=== PATIENT | male | born 2000 | race Caucasian/White ===

== ENCOUNTER 2020-05-10 07:30 | Emergency (ER) | payer BC, SELFPAY ==
[2020-05-10 07:42] VITALS: BP 159/90; PULSE 78; RESP 16; TEMP 36.5; O2SAT 99
--- NOTE | 2020-05-10 08:01 | ED.EAR ---
HPI - Ear Problem General Chief complaint: Ear Stated complaint: ear ache Source: patient Mode of arrival: ambulatory Limitations: no limitations History of Present Illness HPI Narrative: C/o inability to hear out of left ear since getting mud in it 3 days ago. He rates pain as 5-6/10. He tried home irrigation without results. No external ear tenderness. Complaint: ear discharge Duration: constant Relieving factors: nothing Discharge from ear: Reports no Associated symptoms ear: external ear tenderness Related Data Allergies Allergy/AdvReac Type Severity Reaction Status Date / Time No Known Allergies Allergy Verified 05/10/20 07:48 Review of Systems Constitutional: Constitutional: Denies fever(s) ENT: Denies nasal congestion and Denies sore throat PMFSH Family History Family History (Updated 06/14/16 @ 16:00 by DOCTOR UNKNOWN) Father Diabetes mellitus Family history of sleep apnea Other Asthma Family history of arthritis Social History Social History (Updated 05/10/20 @ 08:09 by Dm Alvarado MD) Smoking status: Current every day smoker Tobacco type: cigarettes Smokeless tobacco user: chewing tobacco Second hand tobacco smoke exposure: No Alcohol intake: never Substance use: current Substance use type: marijuana Gender identity (if verbalized by the patient): Male Exam HENMT: Ears: external ears abnormal (minor discomfort with left tragus movement, no pain with auricle retraction), EAC's normal and Abnormal EAC present (yellow substance fully obstructing canal on left. ) Mouth: Yes moist mucous membranes Other: Right EAC with minimal cerumen, normal TM landmarks. Neck: Neck: no lymphadenopathy Course Vital Signs Vital signs: Vital Signs Temperature 36.5 C 05/10/20 07:42 Pulse Rate 78 05/10/20 07:42 Respiratory Rate 16 05/10/20 07:42 Blood Pressure 159/90 H 05/10/20 07:42 Pulse Oximetry 99 05/10/20 07:42 Temperature 36.5 C 05/10/20 08:05 Pulse Rate 80 05/10/20 08:05 Respiratory Rate 16 05/10/20 08:05 Blood Pressure 145/88 H 05/10/20 08:05 Pulse Oximetry 99 05/10/20 08:05 Procedures Ear Wax Removal Left Ear: Ear Wax Removal Date: 05/10/20 Ear Wax Removal Time: 08:00 Results: Re-examined: cerumen removed completely TM Examination: TM(s) intact, normal appearance Ear Canal Exam: atraumatic Patient Tolerated Procedure: well Complications: no problems Technique: ear canal irrigated Medical Decision Making Vital Signs Vital Signs: Vital Signs Temperature 36.5 C 05/10/20 07:42 Pulse Rate 78 05/10/20 07:42 Respiratory Rate 16 05/10/20 07:42 Blood Pressure 159/90 H 05/10/20 07:42 Pulse Oximetry 99 05/10/20 07:42 Temperature 36.5 C 05/10/20 08:05 Pulse Rate 80 05/10/20 08:05 Respiratory Rate 16 05/10/20 08:05 Blood Pressure 145/88 H 05/10/20 08:05 Pulse Oximetry 99 05/10/20 08:05 Discharge Plan Discharge Clinical Impression: Cerumen impaction Qualifiers: Laterality: left Qualified Code(s): H61.22 - Impacted cerumen, left ear Patient Disposition: Home, Self-Care Condition: Stable Instructions: Ear Foreign Body (ED) Additional Instructions: Wear ear plugs when mudding on 4 [place]. Return or see primary care doctor if ear pain develops. Prescriptions: No Action albuterol sulfate [Ventolin HFA] 90 mcg/actuation HFA aerosol inhaler 1 inhalation INHALATION Q4H PRN (Reason: shortness of breath) Qty: 18 RF: 1 Follow-up/Referrals: Titus Quiroz Jr., MD [Primary Care Provider] - Time of Disposition: 08:04 Discharge Date/Time: 05/10/20 08:07
[2020-05-10 08:05] VITALS: BP 145/88; PULSE 80; RESP 16; TEMP 36.5; O2SAT 99
== END 2020-05-10 08:07 | disposition home or self-care (01) ==
PROVIDERS: Emergency Provider Family Medicine; PCP Internal Medicine
DX: H61.22 Impacted cerumen, left ear (principal)
CPT/HCPCS: 69209; 69210; 99281; 99282

== ENCOUNTER 2020-05-11 08:52 | Emergency (ER) | payer BC, SELFPAY ==
--- NOTE | 2020-05-11 09:02 | ED.EAR ---
HPI - Ear Problem General Chief complaint: Ear Stated complaint: ear ache Time Seen by Provider: 05/11/20 09:02 Source: patient Mode of arrival: ambulatory Limitations: no limitations History of Present Illness HPI Narrative: 19-year-old man comes in today complaining of left ear pain that started this morning. Patient states he was here yesterday and was treated for a cerumen obstruction in the left ear. He states he can hear fine and has had no discharge from his ear. He denies vertigo, nausea, vomiting or ataxia. Prior to cerumen removal yesterday he had used a Q-tip to try to clean out his ears and had pain afterwards. Complaint: ear pain Location: left ear Duration: constant Severity: moderate Relieving factors: nothing Exacerbating factors: palpation Context: Reports trauma Discharge from ear: Reports no Treatment prior to arrival: none Related Data Allergies Allergy/AdvReac Type Severity Reaction Status Date / Time No Known Allergies Allergy Verified 05/10/20 07:48 Review of Systems Constitutional: Constitutional: Denies chills and Denies fever(s) Eyes: Eyes: Denies change in vision and Denies photophobia ENT: Denies dysphagia, Denies nasal congestion and Denies sore throat Cardiovascular: Cardiovascular: Denies chest pain and Denies radiating jaw, neck or arm pain Respiratory: Respiratory: Denies cough and Denies dyspnea Musculoskeletal: Musculoskeletal: Denies arthralgias and Denies joint swelling Integumentary/Breasts: Skin/Breast: Denies pruritus, Denies erythema and Denies rash Neurologic: Denies vertigo, Denies dizziness, Denies syncope, Denies headache(s), Denies focal weakness and Denies numbness Hematologic/Lymphatic: Hematologic/Lymphatic: Denies easy bleeding and Denies easy bruising Allergic/Immunologic: Allergic/Immunologic: Denies lip swelling and Denies wheezing PMFSH Family History Family History (Updated 06/14/16 @ 16:00 by DOCTOR UNKNOWN) Father Diabetes mellitus Family history of sleep apnea Other Asthma Family history of arthritis Social History Social History Smoking status: Current every day smoker Tobacco type: cigarettes Smokeless tobacco user: chewing tobacco Second hand tobacco smoke exposure: No Alcohol intake: never Substance use: current Substance use type: marijuana Gender identity (if verbalized by the patient): Male Exam Const: General: healthy appearing and alert Orientation/consciousness: patient oriented x3 Limitations: no limitations Other: Mild acute distress. HENMT: Ears: external ears normal General nose exam: Normal nares present Mouth: Yes moist mucous membranes Throat: posterior oropharynx normal Other: Right TM and EAC are normal. Left EAC has swelling from the inferior portion which obstructs the most of the tympanic membrane. What little tympanic membrane is visible appears to be intact. No lacerations are noted in the visible portion. There is tragal tenderness without mastoid, pinna or periauricular swelling or erythema. Eyes: Pupils: Equal, round and reactive pupils present Resp: Effort & Inspection: normal respiratory effort and not labored Auscultation: clear to auscultation bilaterally, no rales, no rhonchi and no wheezes Cardio: Rate: regular rate Rhythm: regular rhythm Heart sounds: no murmurs Skin: General skin exam: normal color, no jaundice and no pallor Rashes: no rashes Neuro: General: patient oriented x3, moves all extremities, no focal motor deficits and CN's II-XI intact bilaterally Speech: normal speech Gait exam (Neuro): Normal gait present Extrem: General: normal to inspection and no clubbing, cyanosis or edema Psych: Appearance: grossly normal and well kempt Mental Status: mental status grossly normal Affect: normal affect Attitude: cooperative Thought content: Yes Normal thought content present Discharge Plan Discharge
[2020-05-11 09:04] VITALS: BP 142/83; PULSE 87; RESP 20; TEMP 36.9; O2SAT 98
[2020-05-11 09:21] VITALS: BP 140/80; PULSE 75; RESP 18; TEMP 36.7; O2SAT 98
== END 2020-05-11 09:24 | disposition home or self-care (01) ==
PROVIDERS: Emergency Provider Emergency Medicine; PCP Internal Medicine
DX: H60.392 Other infective otitis externa, left ear (principal)
CPT/HCPCS: 99283

== ENCOUNTER 2020-05-16 10:40 | Emergency (ER) | payer BC, SELFPAY ==
[2020-05-16 11:40] VITALS: BP 152/67; PULSE 84; RESP 20; TEMP 36.8; O2SAT 98
--- NOTE | 2020-05-16 11:54 | ED.EAR ---
HPI - Ear Problem General Chief complaint: Ear Stated complaint: ear infection R ear Source: patient Mode of arrival: ambulatory Limitations: no limitations History of Present Illness HPI Narrative: Patient presents with some right ear pain currently no drainage with some no fever chills no shortness of breath no sinus pressure or congestion had similar problems with his left ear approximately 1 week ago and was treated with antibiotics. Complaint: ear pain Location: right ear Duration: constant Severity: moderate Relieving factors: nothing Exacerbating factors: nothing Discharge from ear: Reports no Related Data Allergies Allergy/AdvReac Type Severity Reaction Status Date / Time No Known Allergies Allergy Verified 05/10/20 07:48 Review of Systems Review of Systems: All systems reviewed & are unremarkable except as noted in HPI and below PMFSH Past Medical History Medical History Mild persistent asthma without complication Family History Family History Father Diabetes mellitus Family history of sleep apnea Other Asthma Family history of arthritis Social History Social History Smoking status: Current every day smoker Tobacco type: cigarettes Smokeless tobacco user: chewing tobacco Second hand tobacco smoke exposure: No Alcohol intake: never Substance use: current Substance use type: marijuana Gender identity (if verbalized by the patient): Male Exam Const: General: no acute distress and alert Orientation/consciousness: patient oriented x3 HENMT: Head: normal to inspection Other: Right ear canal with erythema Eyes: Conjunctivae: conjunctivae normal Pupils: Equal, round and reactive pupils present Resp: Effort & Inspection: normal respiratory effort Auscultation: clear to auscultation bilaterally Cardio: Rate: regular rate Rhythm: regular rhythm GI: Auscultation: normal bowel sounds Back/Spine/Pelvis: Back: no CVA tenderness Skin: General skin exam: normal color Neuro: General: patient oriented x3 Psych: Mental Status: mental status grossly normal Course Course Emergency Course: patient having right ear pain and will prescribe antibiotic ear drops and antibiotics by mouth. Vital Signs Vital signs: Vital Signs Temperature 36.8 C 05/16/20 11:40 Pulse Rate 84 05/16/20 11:40 Respiratory Rate 20 05/16/20 11:40 Blood Pressure 152/67 H 05/16/20 11:40 Pulse Oximetry 98 05/16/20 11:40 Temperature 36.8 C 05/16/20 11:40 Pulse Rate 84 05/16/20 11:40 Respiratory Rate 20 05/16/20 11:40 Blood Pressure 152/67 H 05/16/20 11:40 Pulse Oximetry 98 05/16/20 11:40 Medical Decision Making Vital Signs Vital Signs: Vital Signs Temperature 36.8 C 05/16/20 11:40 Pulse Rate 84 05/16/20 11:40 Respiratory Rate 20 05/16/20 11:40 Blood Pressure 152/67 H 05/16/20 11:40 Pulse Oximetry 98 05/16/20 11:40 Temperature 36.8 C 05/16/20 11:40 Pulse Rate 84 05/16/20 11:40 Respiratory Rate 05/16/20 11:40 Blood Pressure 152/67 H 05/16/20 11:40 Pulse Oximetry 98 05/16/20 11:40 Critical Care Time Critical Care Time Critical Care Time: No Discharge Plan Discharge Clinical Impression: Otitis externa Patient Disposition: Home, Self-Care Condition: Stable Instructions: Antibiotic Form, Otitis Externa (ED) Additional Instructions: follow-up with primary care physician if symptoms persist or worsen. Prescriptions: New Cortisporin-TC 3.3-3-10-0.5 mg/mL drops,suspension 5 drop EACH EAR QID Qty: 10 RF: 0 amoxicillin-pot clavulanate [Augmentin] 875-125 mg tablet 1 tablet PO Q12H Qty: 20 RF: 0 naproxen 500 mg tablet 500 mg PO BID PRN (Reason: pain) Qty: 20 RF: 0 Follow-up/Referrals: Titus Quiroz Jr., MD [Primar
== END 2020-05-16 12:15 | disposition home or self-care (01) ==
PROVIDERS: Emergency Provider Emergency Medicine; PCP Internal Medicine
DX: H60.91 Unspecified otitis externa, right ear (principal)
CPT/HCPCS: 99283

== ENCOUNTER 2022-12-24 22:11 | Emergency (ER) | payer BC, SELFPAY ==
[2022-12-24 22:15] VITALS: BP 130/98; PULSE 87; RESP 20; TEMP 36.6; O2SAT 99
[2022-12-24 23:15] VITALS: BP 133/85; PULSE 88; RESP 20; O2SAT 99
--- NOTE | 2022-12-24 23:19 | ED.EAR ---
HPI - Ear Problem General Chief complaint: Ear Stated complaint: Rt ear wax History of Present Illness HPI Narrative: 22-year-old white male reports he has problems with wax buildup, and was trying to clean out his wax from his right ear, and thinks he made it worse, can not hear very well. Denies pain or bleeding. no other complaints Related Data Allergies Allergy/AdvReac Type Severity Reaction Status Date / Time No Known Allergies Allergy Verified 04/06/22 14:03 Review of Systems Review of Systems: negative review of system except as listed in HPI PMFSH Past Medical History Medical History Mild persistent asthma without complication Family History Family History Father Diabetes mellitus Family history of sleep apnea Other Asthma Family history of arthritis Social History Social History Smoking status: Never smoker Tobacco type: cigarettes Smokeless tobacco user: chewing tobacco Second hand tobacco smoke exposure: No Alcohol intake: never Substance use: current Substance use type: marijuana Gender identity (if verbalized by the patient): Male Exam Narrative: pleasant, well-oriented, no acute distress Const: General: healthy appearing Nutritional Appearance: well nourished Orientation/consciousness: patient oriented x3 HENMT: Ears: external ears normal Other: right tympanic membrane is obscured by cerumen impaction, left unremarkable Eyes: Conjunctivae: conjunctivae normal Pupils: Equal, round and reactive pupils present EOM: EOMs intact bilaterally Neck: Neck: normal visual inspection Resp: Effort & Inspection: normal respiratory effort Skin: General skin exam: normal color Neuro: General: patient oriented x3, moves all extremities, no focal motor deficits and CN's II-XI intact bilaterally Extrem: General: normal to inspection Psych: Mental Status: mental status grossly normal Affect: normal affect Attitude: cooperative Course Course Emergency Course: patient's right ear was irrigated with warm water until large amount of cerumen was removed, there was no evidence of trauma to the tympanic membrane or external canal ear, and he reports that his hearing is back to baseline. Explained to him about Debrox, using it in each ear once a week and doing that ongoing. He will then follow up with his PCP if needed Vital Signs Vital signs: Vital Signs Temperature 36.6 C 12/24/22 22:15 Pulse Rate 87 12/24/22 22:15 Respiratory Rate 20 12/24/22 22:15 Blood Pressure 130/98 H 12/24/22 22:15 Pulse Oximetry 99 12/24/22 22:15 Oxygen Delivery Room Air 12/24/22 22:15 Temperature 36.6 C 12/24/22 22:15 Pulse Rate 88 12/24/22 23:15 Respiratory Rate 20 12/24/22 23:15 Blood Pressure 133/85 12/24/22 23:15 Pulse Oximetry 99 12/24/22 23:15 Oxygen Delivery Room Air 12/24/22 23:15 Medical Decision Making Differential Diagnosis Differential Diagnosis: differential diagnosis includes but is not limited to cerumen impaction, TM perforation, trauma to the external canal Vital Signs Vital Signs: Vital Signs Temperature 36.6 C 12/24/22 22:15 Pulse Rate 87 12/24/22 22:15 Respiratory Rate 20 12/24/22 22:15 Blood Pressure 130/98 H 12/24/22 22:15 Pulse Oximetry 99 12/24/22 22:15 Oxygen Delivery Room Air 12/24/22 22:15 Temperature 36.6 C 12/24/22 22:15 Pulse Rate 88 12/24/22 23:15 Respiratory Rate 20 12/24/22 23:15 Blood Pressure 133/85 12/24/22 23:15 Pulse Oximetry 99 12/24/22 23:15 Oxygen Delivery Room Air 12/24/22 23:15 the elevated diastolic but under dressed Discharge Plan Discharge Clinical Impression: Cerumen impaction Qualifiers: Laterality: right Qualified Code(s): H61.21 - Impacted cerumen, right ear Patient Di
== END 2022-12-24 23:39 | disposition home or self-care (01) ==
PROVIDERS: Emergency Provider Emergency Medicine; PCP Physician Assistant
DX: H61.21 Impacted cerumen, right ear (principal)
CPT/HCPCS: 69209; 99282

== ENCOUNTER 2023-02-09 04:57 | Emergency (ER) | payer BC, SELFPAY ==
[2023-02-09 04:59] VITALS: BP 140/80; PULSE 75; RESP 18; TEMP 36.6; O2SAT 96
--- NOTE | 2023-02-09 05:24 | ED.EAR ---
HPI - Ear Problem General Chief complaint: Ear Stated complaint: Hearing Loss Time Seen by Provider: 02/09/23 05:24 Source: patient and RN notes reviewed Mode of arrival: ambulatory Limitations: no limitations History of Present Illness HPI Narrative: Patient states he had ear wax impacted in the past and this feels same been having gradual increasing hearing loss. Complaint: decreased hearing Location: left ear Duration: constant Severity: moderate Relieving factors: nothing Exacerbating factors: nothing Discharge from ear: Reports no Associated symptoms ear: decreased hearing Treatment prior to arrival: none Related Data Allergies Allergy/AdvReac Type Severity Reaction Status Date / Time No Known Allergies Allergy Verified 02/09/23 05:02 Review of Systems Review of Systems: All systems reviewed & are unremarkable except as noted in HPI and below PMFSH Past Medical History Medical History (Updated 02/09/23 @ 05:29 by Noel Avila MD) Mild persistent asthma without complication Family History Family History Father Diabetes mellitus Family history of sleep apnea Other Asthma Family history of arthritis Social History Social History Smoking status: Never smoker Tobacco type: cigarettes Smokeless tobacco user: chewing tobacco Second hand tobacco smoke exposure: No Alcohol intake: never Substance use: current Substance use type: marijuana Gender identity (if verbalized by the patient): Male Exam Const: General: healthy appearing, no acute distress and alert Nutritional Appearance: well nourished Orientation/consciousness: patient oriented x3 Limitations: no limitations HENMT: Head: normal to inspection Ears: external ears normal, TM's normal bilaterally and Abnormal EAC present cerumen impaction on the left and localized and excessive cerumen Face/Nose/Sinus: Normal external nose present Face and sinus: normal facial exam Mouth: Yes moist mucous membranes Eyes: Conjunctivae: conjunctivae normal Pupils: Equal, round and reactive pupils present EOM: EOMs intact bilaterally Neck: Neck: normal visual inspection Resp: Effort & Inspection: normal respiratory effort Auscultation: clear to auscultation bilaterally Cardio: Rate: regular rate Rhythm: regular rhythm GI: GI Palp: Yes Soft to palpation and No Tenderness to palpation present (GI) Auscultation: normal bowel sounds Back/Spine/Pelvis: Cervical Spine: cervical ROM normal Thoracic/Lumbar Spine: thoraco-lumbar ROM normal Skin: General skin exam: normal color Rashes: no rashes Neuro: General: patient oriented x3, moves all extremities, no focal motor deficits and CN's II-XI intact bilaterally Speech: normal speech Gait exam (Neuro): Normal gait present Extrem: General: normal to inspection and no clubbing, cyanosis or edema Psych: Mental Status: mental status grossly normal Affect: normal affect Attitude: cooperative Course Vital Signs Vital signs: Vital Signs Temperature 36.6 C 02/09/23 04:59 Pulse Rate 75 02/09/23 04:59 Respiratory Rate 18 02/09/23 04:59 Blood Pressure 140/80 02/09/23 04:59 Pulse Oximetry 96 02/09/23 04:59 Oxygen Delivery Room Air 02/09/23 04:59 Temperature 36.6 C 02/09/23 04:59 Pulse Rate 75 02/09/23 04:59 Respiratory Rate 18 02/09/23 04:59 Blood Pressure 140/80 02/09/23 04:59 Pulse Oximetry 96 02/09/23 04:59 Oxygen Delivery Room Air 02/09/23 04:59 Procedures Ear Wax Removal Left Ear: Ear Wax Removal Date: 02/09/23 Results: Re-examined: cerumen removed completely TM Examination: TM(s) intact, normal appearance Ear Canal Exam: atraumatic Patient Tolerated Procedure: well and no complications Complications: no problems Technique: ear canal irrigated Medical Decision Making Dif
== END 2023-02-09 05:36 | disposition home or self-care (01) ==
PROVIDERS: Emergency Provider Emergency Medicine; PCP Physician Assistant
DX: H61.22 Impacted cerumen, left ear (principal)
CPT/HCPCS: 69209; 99282

== ENCOUNTER 2023-06-10 11:02 | Emergency (ER) | payer BC, SELFPAY ==
[2023-06-10 11:02] VITALS: BP 154/87; PULSE 75; RESP 18; TEMP 36.8; O2SAT 98
--- NOTE | 2023-06-10 11:18 | ED.GENADULT ---
HPI - General Adult General Chief complaint: Ear Stated complaint: R ear pain Time Seen by Provider: 06/10/23 11:18 History of Present Illness HPI narrative: [id number] yo man presents with right ear pain for the past 2 days. Recently did an OTC ear wax treatment. Now diminished hearing in right ear and occasional tinnitus. No facial asymmetry or weakness. No tooth or jaw pain. No fevers or chills. Related Data Allergies Allergy/AdvReac Type Severity Reaction Status Date / Time No Known Allergies Allergy Verified 05/16/23 07:31 Review of Systems Review of Systems: All systems reviewed & are unremarkable except as noted in HPI and below Constitutional: Constitutional: Denies chills and Denies fever(s) ENT: Denies dysphagia and Denies sore throat Cardiovascular: Cardiovascular: Denies chest pain PMFSH Past Medical History Medical History (Updated 06/10/23 @ 11:22 by Santiago Chiang MD) Mild persistent asthma without complication Family History Family History Father Diabetes mellitus Family history of sleep apnea Other Asthma Family history of arthritis Social History Social History Smoking status: Never smoker Tobacco type: cigarettes Smokeless tobacco user: chewing tobacco Second hand tobacco smoke exposure: No Alcohol intake: never Substance use: current Substance use type: marijuana Current Housing: Decline to Answer Concerned About Future Housing: Decline to Answer Difficulty Paying Gas/Electric Bills: Decline to Answer Difficulty Paying for Meds: Decline to Answer Currently Unemployed: Decline to Answer Education: Decline to Answer Difficulty w/ Childcare or Family Care: Decline to Answer Gender identity (if verbalized by the patient): Male Exam Const: General: healthy appearing and no acute distress Nutritional Appearance: well nourished HENMT: Ears: external ears normal, TM's normal bilaterally and EAC's normal Eyes: Conjunctivae: conjunctivae normal Neck: Neck: normal visual inspection Other: supple Skin: General skin exam: normal color, no jaundice and no pallor Neuro: Gait exam (Neuro): Normal gait present Other: no facial asymmetry Course Vital Signs Vital signs: Vital Signs Temperature 36.8 C 06/10/23 11:02 Pulse Rate 75 06/10/23 11:02 Respiratory Rate 18 06/10/23 11:02 Blood Pressure 154/87 H 06/10/23 11:02 Pulse Oximetry 98 06/10/23 11:02 Oxygen Delivery Room Air 06/10/23 11:02 Temperature 36.8 C 06/10/23 11:02 Pulse Rate 75 06/10/23 11:02 Respiratory Rate 18 06/10/23 11:02 Blood Pressure 154/87 H 06/10/23 11:02 Pulse Oximetry 98 06/10/23 11:02 Oxygen Delivery Room Air 06/10/23 11:02 Medical Decision Making MDM Narrative Medical decision making narrative: right ear pain DDx otitis externa, otitis media, labyrinthitis, odontalgia. Likely labyrinthitis due to concurrent diminished hearing and tinnitus. Vital Signs Vital Signs: Vital Signs Temperature 36.8 C 06/10/23 11:02 Pulse Rate 75 06/10/23 11:02 Respiratory Rate 18 06/10/23 11:02 Blood Pressure 154/87 H 06/10/23 11:02 Pulse Oximetry 98 06/10/23 11:02 Oxygen Delivery Room Air 06/10/23 11:02 Temperature 36.8 C 06/10/23 11:02 Pulse Rate 75 06/10/23 11:02 Respiratory Rate 18 06/10/23 11:02 Blood Pressure 154/87 H 06/10/23 11:02 Pulse Oximetry 98 06/10/23 11:02 Oxygen Delivery Room Air 06/10/23 11:02 Discharge Plan Discharge Clinical Impression: Acute pain of right ear Acute labyrinthitis Qualifiers: Laterality: right Qualified Code(s): H83.01 - Labyrinthitis, right ear Patient Disposition: Home, Self-Care Condition: Stable Prescriptions: New dexamethasone 4 mg tablet 4 mg PO BID Qty: 10 0RF ofloxacin 0.3 % drops 5 drp R
[2023-06-10] MEDS: KETOROLAC (*BKC) 60 MG/2 ML VIAL IM (11:41)
== END 2023-06-10 12:15 | disposition home or self-care (01) ==
LOC: CHSED 12:00
PROVIDERS: Emergency Provider Emergency Medicine; PCP Physician Assistant
DX: H83.01 Labyrinthitis, right ear (principal); F17.220 Nicotine dependence, chewing tobacco, uncomplicated
CPT/HCPCS: 96372; 99283; J1885

== ENCOUNTER 2023-10-14 10:19 | Outpatient (CLI) | payer BC, SELFPAY ==
[2023-10-14 11:04] LABS: SARS-CoV-2 RNA PCR Negative (Negative)
[2023-10-14 11:07] LABS: Influenza A QL RT-PCR Positive (Negative); Influenza B QL RT-PCR Negative (Negative); RSV RNA, RT-PCR Negative (Negative)
== END 2023-10-14 10:20 | disposition home or self-care (01) ==
LOC: CHSLAB 10:20
PROVIDERS: PCP Physician Assistant; Visit Provider Physician Assistant
DX: J10.1 Influenza due to other identified influenza virus with other respiratory manifestations (principal); R68.89 Other general symptoms and signs
CPT/HCPCS: 87637

== ENCOUNTER 2025-02-15 11:22 | Emergency (ER) | payer BC, SELFPAY ==
[2025-02-15 11:25] VITALS: BP 164/103; PULSE 101; RESP 18; TEMP 36.7; O2SAT 96
--- NOTE | 2025-02-15 11:56 | ED.GENADULT ---
HPI - General Adult General Chief complaint: Eye Problems Stated complaint: something in rt. eye Time Seen by Provider: 02/15/25 11:41 Source: patient Mode of arrival: ambulatory Limitations: no limitations History of Present Illness HPI narrative: 24-year-old male working on his car last night felt some does get in his eye tried to wash it out he said he sees a small speck at the 9 o'clock position over his iris. Denies any problems with his vision. Does not wear glasses. Denies any nausea vomiting or any other complaints. Related Data Allergies Allergy/AdvReac Type Severity Reaction Status Date / Time No Known Allergies Allergy Verified 02/15/25 11:23 Review of Systems Review of Systems: All systems reviewed & are unremarkable except as noted in HPI and below PMFSH Past Medical History Medical History (Updated 02/15/25 @ 12:03 by Osiel Johnston MD) Mild persistent asthma without complication Family History Family History Father Diabetes mellitus Family history of sleep apnea Other Asthma Family history of arthritis Social History Social History Social History: Caffeine-energy drinks Smoking status: Never smoker Alcohol intake: never Substance use: current Substance use type: marijuana Lack of Transportation: No Lack of Food: Never True Current Housing: I Have Housing Concerned About Future Housing: No Difficulty Paying Gas/Electric Bills: No Difficulty Paying for Meds: No Currently Unemployed: No Education: Trade/Vocational Certificate Difficulty w/ Childcare or Family Care: No Gender identity (if verbalized by the patient): Male Exam Narrative: White male patient with no apparent distress. Head normocephalic, atraumatic. Eyes conjunctiva Injected. Extraocular movements are intact. Tetracaine was used and a spec at 9:00 a.m. position over his iris was seen with the fluorescein. There is no other fluorescein uptake Was seen. eye was irrigated clean with Dacriose solution.. His eyelid was everted on the right and no foreign bodies were seen there. Neurological patient is alert and oriented x 4. Motor and sensory grossly intact. Gait is normal. Course Vital Signs Vital signs: Vital Signs Temperature 36.7 C 02/15/25 11:25 Pulse Rate 101 H 02/15/25 11:25 Respiratory Rate 18 02/15/25 11:25 Blood Pressure 164/103 H 02/15/25 11:25 Pulse Oximetry 96 02/15/25 11:25 Oxygen Delivery Room Air 02/15/25 11:25 Temperature 36.7 C 02/15/25 12:09 Pulse Rate 82 02/15/25 12:09 Respiratory Rate 16 02/15/25 12:09 Blood Pressure 142/82 H 02/15/25 12:09 Pulse Oximetry 98 02/15/25 12:09 Oxygen Delivery Room Air 02/15/25 12:09 Medical Decision Making MDM Narrative Medical decision making narrative: Patient was placed in Room # History and physical was performed. Visual acuity was obtained which was 2020 in the left eye and 2020 -1 in the right eye. And with both eyes 2020 -1 Independent Historian: patient External Source Review: Differential Dx includes but not limited to: foreign body corneal abrasion conjunctivitis Medications were Reviewed: Independently Interpreted by me: Meds, treatment, ED course: Social Situation Impacting Patients Care: Shared decision Making: patient to follow-up with eye physician today at 1:[address] YUNG DIAGNOSIS: foreign body right eye DISPOSITION: discharge home CONDITION AT DISCHARGE: stable Vital Signs Vital Signs: Vital Signs Temperature 36.7 C 02/15/25 11:25 Pulse Rate 101 H 02/15/25 11:25 Respiratory Rate 18 02/15/25 11:25 Blood Pressure 164/103 H 02/15/25 11:25 Pulse Oximetry 96 02/15/25 11:25 Oxygen Delivery Room Air 02/15/25 11:25 Temperature 36.7 C 02/15/25 12:09 Pulse Rate 82 02/15/25 12:09 Respiratory Rate 16 02/15/25 12:09 Blood Pressure 142/82 H 02/15/25 12:09 Pulse Oximetry 98 02/15/25 12:09 Oxygen Delivery Room Air 02/15/25 12:09 Discharge Plan Discharge Clinical Impression: Eye foreign body Qualifiers: Encounter type: initial encounter Laterality: right Qualified Code(s): T15.91XA - Foreign body on external eye, part unspecified, right eye, initial encounter Patient Disposition: Home Condition: Stable Instructions: Antibiotic Form Additional Instructions: follow-up with eye doctor today at 1:00 p.m. Patient Language: Mohawk Prescriptions: No Action Ear Wax Removal Drops 6.5 % drops 5 drp EACH EAR .q week 360 Days Qty: 15 12RF ofloxacin 0.3 % drops 5 drp RIGHT EAR BID 7 Days Qty: 5 0RF albuterol sulfate 90 mcg/actuation HFA aerosol inhaler See Rx Instructions .ROUTE .COMPLEX Qty: 8.5 5RF Dose Instruction: INHALE TWO PUFFS BY MOUTH EVERY FOUR TO SIX HOURS NEEDED FOR SHORTNESS OF BREATH OR WHEEZING Rx Instructions: INHALE TWO PUFFS BY MOUTH EVERY FOUR TO SIX HOURS NEEDED FOR SHORTNESS OF BREATH OR WHEEZING Follow-up/Referrals: Camilla Goss OD [Physician] - ([facility] [address] [place], [place] [id number]) UNKNOWN,DOCTOR [Non-Staff] - Time of Disposition: 12:02
--- OUTSIDE RECORDS SUMMARY | 2025-02-15 11:59 | XMS_ITS | Clinical Summary ---
Author Organization [facility] Address [facility] [place] [address] Care Team Providers Care Sales Engineer Name Role Phone Unavailable Primary Care Provider Unavailabl e Social History Tobacco Use Types Packs/Day Years Used Date Smoking Tobacco: Never Assessed Sex and Gender Information Value Date Recorded Sex Assigned at Not on file Legal Sex Male 7:10 PM CDT Gender Identity Not on file Sexual Orientation Not on file Plan of Treatment Health Maintenance Due Date Last Done Comments Annual Physical 2002 HPV Vaccines (1 - Male 3-dos e series) 2014 Hepatitis C 2017 DTaP, Tdap and Td Vaccines ( 1 - Tdap) 2018 Hepatitis B Vaccines (1 of 3 - 19+ 3-dose series) 2018 COVID-19 Vaccine ( - 2023-2 5 season) 2024 Meningococcal B Vaccine Aged Out No l onger eligible based on patient's age to complete this topic Meningococcal Vaccine Aged Out No antoni tresa eligible based on patient's age to complete this topic Pneumococcal Vaccine: Pediat rics (0 to 5 Years) and At-Risk Patients (6 to 49 Years) Aged Out No longer eligible b ased on patient's age to complete this topic RSV Immunizations Under 20 Months Aged Out No longer eligible based on patient's age to complete this topic
--- OUTSIDE RECORDS SUMMARY | 2025-02-15 11:59 | XMS_ITS | Clinical Summary ---
Author Organization [facility] Address [address] [place] [address] Care Team Providers Care Signal Intelligence Analyst Name Role Phone Amanda Hernandez MD Primary Care Provider [phone] Source Comments [facility],non-[facility] Affiliates and Associated Physician Practices is amultiple site organization consisting of ambulatory clinics and hospital sitesin [place], [place] and [place]. This disclosure is being madepursuant to the Care Everywhere program and may not contain all information available regarding this patient. Last updated 18.[facility] Super Allergies No known active allergies Medications * Be aware that medications may not be up to date on this document. Alwaysverify current medications with the patient. methylphenidate CR (CONCERTA) 54 MG tablet Take 54 mg by mouth every morning. Active albuterol (PROVENTIL;BYRON CARMEL) (5 MG/ML) 0.5% nebulizer solution Inhale 2.5 mg by mouth 4 times daily as needed. Active albuterol HFA (PROVENTIL;BYRON CARMEL;PROAIR) 108 (90 BASE) MCG/ACT inhaler Inhale 2 Puffs by mouth every 4 hours as needed. Active hydrocodone-acet aminophen solution (LORTAB) 7.5-500 MG/15ML solution Take 8.5 mL by mouth every 4 hours as needed for Pain. 480 mL 1 09/25/2011 Active Active Problems Problem Noted Date Diagnosed Date Asthma 05/10/2011 ADHD (attention deficit hyperactivity disorder) 05/10/2011 Hypertrophy of tonsils and adenoids 05/10/2011 KAREN (obstructive sleep apnea) 05/10/2011 Otitis externa 05/10/2011 Family History Medical History Relation Name Comments Anesthesia Reaction Mother Bleeding Disorders Neg Hx Childhood Hearing Disorder Neg Hx Relation Name Status Comments Mother Social History Tobacco Use Types Packs/Day Years Used Date Smoking Tobacco: Passive Smo ke Exposure - Never Smoker Sex and Gender Information Value Date Recorded Sex Assigned at Not on file Legal Sex Male 11:58 AM DIRECTOR ZONE Gender Identity Not on file Sexual Orientation Not on file Last Filed Vital Signs Vital Sign Reading Time Taken Comments Blood Pressure 120/60 09/25/2011 2:13 PM DIRECTOR ZONE Pulse 120 09/25/2011 2:45 PM DIRECTOR ZONE Temperature 36.7 C (98 F) 09/25/2011 2:13 PM DIRECTOR ZONE Respiratory Rate 20 09/25/2011 2:45 PM DIRECTOR ZONE Oxygen Saturation 97% 09/25/2011 2:00 PM DIRECTOR ZONE Inhaled Oxygen Concentration - - Weight 42.2 kg (93 lb 1.3 oz) 09/25/2011 10:15 A M DIRECTOR ZONE Height 143.2 cm (4' 8.38 ) 09/25/2011 10:[address] Body Mass Index 20.59 09/25/2011 10:15 AM DIRECTOR ZONE Plan of Treatment Health Maintenance Due Date Last Done Comments HIV SCREENING 2014 HPV VACCINE (1 - Male 3-dose series) 2014 HEPATITIS C SCREENING 11/22/2017 DTAP/TDAP/TD VACCINES (1 - Tdap) 2018 HEPATITIS B VACCINE (1 of 3 - 19+ 3-dose series) 2018 COVID-19 VACCINE (1 - 2023-2 5 season) 2024 DEPRESSION SCREENING 09/30/2024 INFLUENZA VACCINE (Season Ended) 2025 ZOSTER VACCINE (1 of 2) 2049 HIB VACCINE Aged Out No longer eligi ble based on patient's age to complete this topic MENINGOCOCCAL (Group B) VACC INE SHARED DECISION-MAKING Aged Out No longer eligibl e based on patient's age to complete this topic MENINGOCOCCAL GROUPS A/C/Y/W VACCINE Aged Out No longer eligible b ased on patient's age to complete this topic PNEUMOCOCCAL VACCINE Aged Out No long er eligible based on patient's age to complete this topic Care Teams Signal Intelligence Analyst Relationship Specialty Start Date End Date Amanda Hernandez MD [address] [place] [address] PCP - General 04/06/11
[2025-02-15 12:09] VITALS: BP 142/82; PULSE 82; RESP 16; TEMP 36.7; O2SAT 98
== END 2025-02-15 12:09 | disposition home or self-care (01) ==
PROVIDERS: Emergency Provider Emergency Medicine; PCP Internal Medicine
DX: T15.91XA Foreign body on external eye, part unspecified, right eye, initial encounter (principal); W44.9XXA Unspecified foreign body entering into or through a natural orifice, initial encounter
CPT/HCPCS: 99283; A9270

== ENCOUNTER 2025-02-20 20:14 | Emergency (ER) | payer BC, SELFPAY ==
[2025-02-20 20:14] VITALS: BP 161/91; PULSE 103; RESP 18; TEMP 37.7; O2SAT 98
--- OUTSIDE RECORDS SUMMARY | 2025-02-20 20:18 | XMS_ITS | Clinical Summary ---
Author Organization [facility] Address [address] [place] [address] Care Team Providers Care Leadership Program Associate Name Role Phone Amanda Hernandez MD Primary Care Provider [phone] Source Comments [facility],non-[facility] Affiliates and Associated Physician Practices is amultiple site organization consisting of ambulatory clinics and hospital sitesin [place]. This disclosure is being madepursuant to the Care Everywhere program and may not contain all information available regarding this patient. Last updated 18.[facility] Allergies No known active allergies Medications * [...] on file Legal Sex Male 11:58 AM PV DESIGN ENGINEER Gender Identity Not on file Sexual Orientation Not on file Last Filed Vital Signs Vital Sign Reading Time Taken Comments Blood Pressure 120/60 09/25/2011 2:13 PM PV DESIGN ENGINEER Pulse 120 09/25/2011 2:45 PM PV DESIGN ENGINEER Temperature 36.7 C (98 F) 09/25/2011 2:13 PM PV DESIGN ENGINEER Respiratory Rate 20 09/25/2011 2:45 PM PV DESIGN ENGINEER Oxygen Saturation 97% 09/25/2011 2:00 PM PV DESIGN ENGINEER Inhaled Oxygen Concentration - - Weight 42.2 kg (93 lb 1.3 oz) 09/25/2011 10:15 A M PV DESIGN ENGINEER Height 143.2 cm (4' 8.38 ) 09/25/2011 10:[address] Body Mass Index 20.59 09/25/2011 10:15 AM PV DESIGN ENGINEER Plan of Treatment Health Maintenance Due Date [...] age to complete this topic Care Teams Leadership Program Associate Relationship Specialty Start Date End Date Amanda Hernandez MD [address] [place] [address] PCP - General 04/06/11
[2025-02-20 21:21] LABS: Strep Group A RT-PCR NOT DETECTED (Negative)
--- NOTE | 2025-02-20 21:30 | ED_ITS ---
HPI - URI/Sore Throat General Chief Complaint: Upper Respiratory Infection Stated Complaint: sore throat Time Seen by Provider: 02/20/25 20:18 Source: patient Mode of arrival: ambulatory Limitations: no limitations History of Present Illness HPI Narrative: this is a 24-year-old male with some history of asthma presents with sore throat and fever with some no nausea vomiting no audible wheezing or shortness of breath no chest pain does have tender submandibular lymph nodes with some no abdominal pain no chest pain no dysuria or hematuria no flank pain. Is no cough or congestion. MD elicited complaint: fever and sore throat Onset (ago): day(s) Consistency: constant Severity: mild Related Data Allergies Allergy/AdvReac Type Severity Reaction Status Date / Time No Known Allergies Allergy Verified 02/20/25 20:38 Review of Systems Review of Systems: All systems reviewed & are unremarkable except as noted in HPI and below PMFSH Past Medical History Medical History (Updated 02/20/25 @ 21:34 by Iain Jenkins MD) Mild persistent asthma without complication Family History Family History Father Diabetes mellitus Family history of sleep apnea Other Asthma Family history of arthritis Social History Social History Social History: Caffeine-energy drinks Smoking status: Never smoker Alcohol intake: never Substance use: current Substance use type: marijuana Lack of Transportation: No Lack of Food: Never True Current Housing: I Have Housing Concerned About Future Housing: No Difficulty Paying Gas/Electric Bills: No Difficulty Paying for Meds: No Currently Unemployed: No Education: Trade/Vocational Certificate Difficulty w/ Childcare or Family Care: No Gender identity (if verbalized by the patient): Male Exam Const: General: healthy appearing and no acute distress Nutritional Appearance: well nourished and obese Orientation/consciousness: patient oriented x3 Limitations: no limitations HENMT: Head: normal to inspection Other: Bilateral tonsillar enlargement and erythema Eyes: Conjunctivae: conjunctivae normal Neck: Neck: normal visual inspection, no meningeal signs and lymphadenopathy Chest: Chest palpation & inspection: normal inspection of the chest Resp: Effort & Inspection: normal respiratory effort Auscultation: clear to auscultation bilaterally Cardio: Rate: regular rate Rhythm: regular rhythm GI: GI Palp: Yes Soft to palpation : General: Yes bladder normal to palpation Male General Exam: Yes normal external exam Course Course Emergency Course: patient had a rapid strep that was negative, will administer a dose of Augmentin p.o. for pharyngitis advised patient to take Tylenol or Motrin. Vital Signs Vital signs: Vital Signs Temperature 37.7 C H 02/20/25 20:14 Pulse Rate 103 H 02/20/25 20:14 Respiratory Rate 18 02/20/25 20:14 Blood Pressure 161/91 H 02/20/25 20:14 Pulse Oximetry 98 02/20/25 20:14 Oxygen Delivery Room Air 02/20/25 20:14 Temperature 37.7 C H 02/20/25 20:14 Pulse Rate 103 H 02/20/25 20:14 Respiratory Rate 18 02/20/25 20:14 Blood Pressure 161/91 H 02/20/25 20:14 Pulse Oximetry 98 02/20/25 20:14 Oxygen Delivery Room Air 02/20/25 20:14 MDM - URI/Sore Throat Lab Data Labs: Lab Results 02/20/25 Range/Units 20:18 Group A Strep (PCR) Not detected (Negative) Critical Care Time Critical Care Time Critical Care Time: No Discharge Plan Discharge Clinical Impression: Pharyngitis Patient Disposition: Home Condition: Stable Instructions: Antibiotic Form, Pharyngitis (ED) Additional Instructions: advised patient to take Tylenol or Motrin along with antibiotics as prescribed and to follow with primary care physician if symptoms persist or worsen. Patient Language: Maltese Prescriptions: New amoxicillin-pot clavulanate [Augmentin] 500-125 mg tablet 1 tablet PO TID Qty: 30 0RF No Action Ear Wax Removal Drops 6.5 % drops 5 drp EACH EAR .q week 360 Days Qty: 15 12RF ofloxacin 0.3 % drops 5 drp RIGHT EAR BID 7 Days Qty: 5 0RF albuterol sulfate 90 mcg/actuation HFA aerosol inhaler See Rx Instructions .ROUTE .COMPLEX Qty: 8.5 5RF Dose Instruction: INHALE TWO PUFFS BY MOUTH EVERY FOUR TO SIX HOURS NEEDED FOR SHORTNESS OF BREATH OR WHEEZING Rx Instructions: INHALE TWO PUFFS BY MOUTH EVERY FOUR TO SIX HOURS NEEDED FOR SHORTNESS OF BREATH OR WHEEZING Follow-up/Referrals: Keny Mccarthy DO [Primary Care Provider] - Time of Disposition: 21:34
[2025-02-20] MEDS: AMOXICILLIN/CLAVULANATE K 875-125 MG TAB 1 TABLET PO (21:40)
[2025-02-20 22:05] VITALS: BP 130/81; PULSE 90; RESP 16; TEMP 37.7; O2SAT 100
== END 2025-02-20 22:07 | disposition home or self-care (01) ==
PROVIDERS: Emergency Provider Emergency Medicine; PCP Internal Medicine
DX: J02.9 Acute pharyngitis, unspecified (principal); F12.90 Cannabis use, unspecified, uncomplicated
CPT/HCPCS: 87651; 99283; A9270